=== PATIENT | female | born 1935 | race Caucasian/White ===

== ENCOUNTER 2020-04-02 20:58 | Inpatient (IN) | payer MEDICARE, OTHER ==
[~2020-04-02] VITALS: Ht 162.6 cm; Wt 60.7 kg
--- NOTE | 2020-04-02 21:10 | PHYS DOC ---
Past History Past Medical History: A-Fib, Dementia Past Surgical History: No Surgical History Smoking: Non-smoker Alcohol Use: None General Adult EDM: Chief Complaint: MECHANICAL FALL HPI: HPI: Patient is an 84 year old female who presents for evaluation via EMS after a fall at home. Patient apparently stood up and fell. She has a significant laceration to the top of her head. There was reported loss of consciousness briefly. Patient is not currently on a blood thinner but does have a history of atrial fibrillation. Furthermore patient is a somewhat poor historian due to a history of dementia. Furthermore she has a large skin tears and abrasions to her right hand. No other obvious areas of injury seen or reported. Patient is lucid and able to answer basic questions on arrival. There is no focal deficits or lateralizing signs. C-collar placed for safety in triage but patient has no current complaints of neck pain Review of Systems: Review of Systems: Constitutional: Denies fever or chills Eyes: Denies change in visual acuity HENT: Denies nasal congestion or sore throat Respiratory: Denies cough or shortness of breath Cardiovascular: Denies chest pain or edema GI: Denies abdominal pain, nausea, vomiting, bloody stools or diarrhea : Denies dysuria Musculoskeletal: Denies back pain or joint pain Integument: Denies rash Neurologic: Denies headache, focal weakness or sensory changes Endocrine: Denies polyuria or polydipsia Lymphatic: Denies swollen glands Psychiatric: Denies depression or anxiety Physical Exam: PE: Constitutional: Well developed, well nourished, mild to moderate acute distress. [] HENT: Normocephalic, traumatic with large central curvilinear laceration top of head extending into forehead, bilateral external ears normal, oropharynx moist, no oral exudates, nose normal. [] Eyes: PERRL, EOMI, conjunctiva normal, no discharge. [] Neck: Normal range of motion, no tenderness, supple, no stridor, no midline tenderness. [] Cardiovascular:Heart rate regular rhythm, no murmur [] Lungs & Thorax: Bilateral breath sounds clear to auscultation [] Abdomen: Bowel sounds normal, soft, no tenderness, no masses, no pulsatile masses. [] Skin: Warm, dry, no erythema, no rash. [] Back: No tenderness. [] Extremities: Mild to moderate tenderness right hand, multiple superficial skin tears present around the dorsal right hand and wrist, full range of motion to the affected hand. [] Neurologic: Alert and oriented, normal motor function, normal sensory function, no focal deficits noted. [] Psychologic: Affect abnormal, judgement abnormal, mood abnormal. [] Current Patient Data: Labs: Laboratory Tests Test 04/02/20 21:50 White Blood Count 11.2 x10^3/uL Red Blood Count 4.43 x10^6/uL Hemoglobin 13.0 g/dL Hematocrit 40.1 % Mean Corpuscular Volume 90 fL Mean Corpuscular Hemoglobin 29 pg Mean Corpuscular Hemoglobin Concent 32 g/dL Red Cell Distribution Width 13.3 % Platelet Count 318 x10^3/uL Neutrophils (%) (Auto) 77 % Lymphocytes (%) (Auto) 17 % Monocytes (%) (Auto) 5 % Eosinophils (%) (Auto) 0 % Basophils (%) (Auto) 1 % Neutrophils # (Auto) 8.7 x10^3uL Lymphocytes # (Auto) 1.9 x10^3/uL Monocytes # (Auto) 0.6 x10^3/uL Eosinophils # (Auto) 0.0 x10^3/uL Basophils # (Auto) 0.1 x10^3/uL Prothrombin Time SEC Prothromb Time International Ratio 0.9 Sodium Level 141 mmol/L Potassium Level 3.6 mmol/L Chloride Level 104 mmol/L Carbon Dioxide Level 28 mmol/L Anion Gap 9 Blood Urea Nitrogen 18 mg/dL Creatinine 1.2 mg/dL Estimated GFR (Cockcroft-Gault) 42.6 BUN/Creatinine Ratio 15 Glucose Level 136 mg/dL Calcium Level 9.3 mg/dL Total Bilirubin 0.2 mg/dL Aspartate Amino Transf (AST/SGOT) 7 U/L Alanine Aminotransferase (ALT/SGPT) 11 U/L Alkaline Phosphatase 105 U/L Troponin I Quantitative < 0.017 ng/mL MQ-Hww-R-Type Natriuretic Peptide 225 pg/mL Total Protein 7.4 g/dL Albumin 3.5 g/dL Albumin/Globulin Ratio 0.9 Current Medications Medications (Trade) Dose Ordered Sig/[place] Route PRN Reason Start Time Stop Time Status Last Admin Dose Admin Sodium Chloride 1,000 ml @ 100 mls/hr Q10H IV 04/02/20 21:12 04/03/20 07:11 Lidocaine HCl 20 ml 1X ONCE IJ 04/02/20 21:45 04/02/20 22:05 DC Fentanyl Citrate (Fentanyl 2ml Vial) 25 mcg 1X ONCE IVP 04/02/20 23:30 04/02/20 23:31 EKG: EKG: EKG shows normal sinus rhythm, rate 76, leftward axis, otherwise unremarkable EKG, not STEMI, not afib[] Radiology/Procedures: Radiology/Procedures: [][place] [address] IMAGING REPORT Signed PATIENT: DEISY BLACK AACCOUNT: [id number] : 1935 LOCATION: ER AGE: 84 SEX: F EXAM STATUS: REG ER ORD. PHYSICIAN: DEDRICK LIVINGSTON DO REASON: Right hand pain, fall, injury PROCEDURE: HAND RIGHT 3V Examination: 3 views of the right hand HISTORY: History of right hand pain COMPARISON: None available. Findings: The alignment of the metacarpophalangeal joints, interphalangeal grossly appears unremarkable. Moderate joint space loss identified in the PIP, DIP joints and the first metacarpal joint likely degenerative changes IMPRESSION: 1. No acute osseous findings. 2. Moderate degenerative changes identified in the first carpometacarpal joint and the metacarpophalangeal, interphalangeal joints. Electronically signed by: Cj Sood MD (04/02/2020 10:58 PM) [id number] DICTATED AND SIGNED BY: CJ SOOD MD DATE: 04/02/20 2258 CC: ZANDRA LÓPEZ MD; DEDRICK LIVINGSTON DO ~ Impressions: [address] [address] IMAGING REPORT Signed PATIENT: DEISY BLACK AACCOUNT: [id number] : 1935 LOCATION: ER AGE: 84 SEX: F EXAM STATUS: REG ER ORD. PHYSICIAN: DEDRICK LIVINGSTON DO REASON: short of air, fall PROCEDURE: PORTABLE CHEST 1V EXAM: CHEST 1 VIEW History: Shortness of breath, fall COMPARISON: None available. TECHNIQUE: Single portable radiograph of the chest FINDINGS: The cardiac silhouette is unremarkable. The lungs are clear bilaterally. The costophrenic sulci are clear and well demarcated. IMPRESSION: No radiographic evidence of an acute cardiopulmonary process. Electronically signed by: Cj Sood MD (04/02/2020 10:43 PM) [id number] DICTATED AND SIGNED BY: CJ SOOD MD DATE: 04/02/202242 CC: ZANDRA LÓPEZ MD; DEDRICK LIVINGSTON DO ~ [address] [address] IMAGING REPORT Signed PATIENT: DEISY BLACK AACCOUNT: [id number] : 1935 LOCATION: ER AGE: 84 SEX: F EXAM STATUS: REG ER ORD. PHYSICIAN: DEDRICK LIVINGSTON DO REASON: head injury, LOC, laceration PROCEDURE: CT HEAD AND CERVICAL SPINE WO Examination: CT head and cervical spine without contrast CT HEAD INDICATION: Reason: head injury, LOC, laceration / Spl. Instructions: / History: COMPARISON: None Available. Exposure: One or more of the following individualized dose reduction techniques were utilized for this examination: 1. Automated exposure control 2. Adjustment of the mA and/or kV according to patient size 3. Use of iterative reconstruction technique TECHNIQUE: 5 mm contiguous axial images were obtained from the skull base to the vertex in both bone and soft tissue algorithm. FINDINGS: Mild bilateral periventricular white matter hypodensities likely chronic small vessel ischemic disease. Small laceration left frontal scalp region. No evidence of acute intracranial hemorrhage. No extra-axial fluid collections. No mass effect or midline shift. Ventricular size is appropriate. Basal cisterns are patent. No fractures identified.Madden-white differentiation is preserved.Globes and orbits are within normal limits. Paranasal sinuses and mastoid air cells are clear. IMPRESSION: No acute intracranial findings. CT CERVICAL SPINE INDICATION: Reason: head injury, LOC, laceration / Spl. Instructions: / History: COMPARISON: None Available. Technique: 2.5 mm contiguous axial images were obtained from the skull base through the cervicothoracic junction in both bone and soft tissue algorithm. Additional sagittal and coronal reconstructions were also performed. FINDINGS: Vertebral body height and alignment are maintained. Cervical lordosis is preserved. The lateral masses of C1 are aligned upon C2. No fractures identified. The bony canal is patent throughout. Moderate intervertebral disc height loss identified in cervical spine most at C5-C6, C6-C7 vertebral levels. The paraspinous soft tissues are unremarkable. Visualized intracranial contents are unremarkable. Lung apices are clear. IMPRESSION: 1. No acute fracture of the cervical spine. Correlate clinically. 2. Moderate degenerative changes cervical spine at C5-C6, C6-C7 vertebral levels. Electronically signed by: Cj Sood MD (04/02/2020 10:20 PM) [id number] DICTATED AND SIGNED BY: CJ SOOD MD DATE: 04/02/202219 CC: ZANDRA LÓPEZ MD; DEDRICK LIVINGSTON DO ~ Heart Score: HEART Score for Chest Pain: HEART Score for Chest Pain Response (Comments) Value History Moderately Suspicious 1 ECG Normal 0 Age > 65 2 Risk Factors 1 or 2 Risk Factors 1 Troponin < Normal Limit 0 Total 4 Risk Factors: Risk Factors: DM, Current or recent (<one month) smoker, HTN, HLP, family history of CAD, obesity. Risk Scores: Score 0 - 3: 2.5% MACE over next 6 weeks - Discharge Home Score 4 - 6: 20.3% MACE over next 6 weeks - Admit for Clinical Observation Score 7 - 10: 72.7% MACE over next 6 weeks - Early Invasive Strategies Course & Med Decision Making: Course & Med Decision Making Pertinent Labs and Imaging studies reviewed. (See chart for details) [] Dragon Disclaimer: Dragon Disclaimer: This electronic medical record was generated, in whole or in part, using a voice recognition dictation system. 2315 Case was discussed with Dr. López patient admitted to telemetry bed. Wound closed and dressed on her head. The skin tears on her right hand were dressed with nonstick dressing. There is no fracture present at that site and there is no indication for sutures of that right hand. Since there was loss of consciousness and a head injury as well as a possible syncopal episode patient admitted to the hospital to a telemetry bed. Differential diagnosis included skull fracture, brain bleed, cardiac event. We are working on getting a urine on this patient as it may have contributed to her weakness. Patient has no focal deficits or lateralizing signs. C-spine cleared after CT results were known and are negative for fracture Departure Departure: Impression: Primary Impression: Syncope Qualified Codes: R55 - Syncope and collapse Additional Impressions: Head injury Qualified Codes: S09.90XA - Unspecified injury of head, initial encounter Scalp laceration Qualified Codes: S01.01XA - Laceration without foreign body of scalp, initial encounter General weakness Skin tear of right hand without complication Qualified Codes: S61.411A - Laceration without foreign body of right hand, initial encounter Disposition: 09 ADMITTED INPT THIS HOSP Admitting Physician: Zandra López Condition: STABLE Referrals: ZANDRA LÓPEZ MD (PCP) Laceration/Wound Repair Laceration/Wound Repair : Wound Location: head Wound's Depth, Shape: into muscle, irregular, contused tissue Wound Length (cm): 10 Wound Explored: clean Irrigated w/ Saline (ccs): 200 Anesthesia: 1% Lidocaine Volume Anesthetic (ccs): 10 Wound Debrided: minimal Wound Repaired With: sutures Suture Size/Type: 3:0 Number of Sutures: 2 Sterile Dressing Applied?: Yes Splint Applied?: No Sling Applied?: No Progress In addition to number four 3-0 nylon sutures placed to approximate the wound and additional 12 ashley added this showed good wound approximation. Good hemostasis at the conclusion of the procedure DEDRICK LIVINGSTON DO Apr 02, 2020 21:10
[2020-04-02] MEDS ORDERED: IV NORMAL SALINE 1,000ML 1,000 ML IV SCH (21:12)
[2020-04-02] MEDS ORDERED: LIDOCAINE 2% 20 ML VIAL. IJ ONE (21:45)
--- NOTE | 2020-04-02 22:18 | EKG ---
[address] [address] Test Date: 2020-04-02 Test Time: 21:29:01 Pat Name: DEISY BLACK Department: Room: Gender: F [employer] Operator: NAS : 1935 Requested By: DEDRICK LIVINGSTON Order Number: [id number] Reading MD: Measurements Intervals [place] Rate: 76 P: 51 CO: 150 QRS: -6 QRSD: 74 T: 49 QT: 370 QTc: 420 Interpretive Statements SINUS RHYTHM ATRIAL PREMATURE COMPLEX(ES) LEFTWARD AXIS OTHERWISE NORMAL ECG RI6.02 No previous ECG available for comparison
[2020-04-02 22:19] LABS: BASO # 0.1 x10^3/uL (0.0-0.2); BASO % 1 % (0-3); EOS % 0 % (0-3); HEMATOCRIT 40.1 % (36.0-47.0); LYMPH # 1.9 x10^3/uL (1.0-4.8); LYMPH % 17 % (24-48); MEAN CORPUSCULAR HEMOGLOBIN 29 pg (25-35); MEAN CORPUSCULAR HGB CONC 32 g/dL (31-37); MEAN CORPUSCULAR VOLUME 90 fL (79-100); MONO # 0.6 x10^3/uL (0.0-1.1); MONO % 5 % (0-9); NEUT # 8.7 x10^3uL (1.8-7.7); NEUT % 77 % (31-73); PLATELET COUNT 318 x10^3/uL (140-400); RED BLOOD COUNT 4.43 x10^6/uL (3.50-5.40); RED CELL DISTRIBUTION WIDTH 13.3 % (11.5-14.5); WHITE BLOOD COUNT 11.2 x10^3/uL (4.0-11.0)
--- NOTE | 2020-04-02 22:23 | RAD ---
Examination: CT head and cervical spine without contrast CT HEAD INDICATION: Reason: head injury, LOC, laceration / Spl. Instructions: / History: COMPARISON: None Available. Exposure: One or more of the following individualized dose reduction techniques were utilized for this examination: 1. Automated exposure control 2. Adjustment of the mA and/or kV according to patient size 3. Use of iterative reconstruction technique TECHNIQUE: 5 mm contiguous axial images were obtained from the skull base to the vertex in both bone and soft tissue algorithm. FINDINGS: Mild bilateral periventricular white matter hypodensities likely chronic small vessel ischemic disease. Small laceration left frontal scalp region. No evidence of acute intracranial hemorrhage. No extra-axial fluid collections. No mass effect or midline shift. Ventricular size is appropriate. Basal cisterns are patent. No fractures identified.Madden-white differentiation is preserved.Globes and orbits are within normal limits. Paranasal sinuses and mastoid air cells are clear. IMPRESSION: No acute intracranial findings. CT CERVICAL SPINE INDICATION: Reason: head injury, LOC, laceration / Spl. Instructions: / History: COMPARISON: None Available. Technique: 2.5 mm contiguous axial images were obtained from the skull base through the cervicothoracic junction in both bone and soft tissue algorithm. Additional sagittal and coronal reconstructions were also performed. FINDINGS: Vertebral body height and alignment are maintained. Cervical lordosis is preserved. The lateral masses of C1 are aligned upon C2. No fractures identified. The bony canal is patent throughout. Moderate intervertebral disc height loss identified in cervical spine most at C5-C6, C6-C7 vertebral levels. The paraspinous soft tissues are unremarkable. Visualized intracranial contents are unremarkable. Lung apices are clear. IMPRESSION: 1. No acute fracture of the cervical spine. Correlate clinically. 2. Moderate degenerative changes cervical spine at C5-C6, C6-C7 vertebral levels. Electronically signed by: Cj Sood MD (04/02/2020 10:20 PM) [id number]
[2020-04-02 22:46] LABS: CALCIUM 9.3 mg/dL (8.5-10.1); CREATININE 1.2 mg/dL (0.6-1.0); GFR 42.6; POTASSIUM 3.6 mmol/L (3.5-5.1)
--- NOTE | 2020-04-02 22:46 | RAD ---
EXAM: CHEST 1 VIEW History: Shortness of breath, fall COMPARISON: None available. TECHNIQUE: Single portable radiograph of the chest FINDINGS: The cardiac silhouette is unremarkable. The lungs are clear bilaterally. The costophrenic sulci are clear and well demarcated. IMPRESSION: No radiographic evidence of an acute cardiopulmonary process. Electronically signed by: Cj Sood MD (04/02/2020 10:43 PM) [id number]
[2020-04-02 22:58] LABS: ALBUMIN 3.5 g/dL (3.4-5.0); ALBUMIN/GLOBULIN RATIO 0.9 (1.0-1.7); TOTAL BILIRUBIN 0.2 mg/dL (0.2-1.0); TOTAL PROTEIN 7.4 g/dL (6.4-8.2)
--- NOTE | 2020-04-02 23:01 | RAD ---
Examination: 3 views of the right hand HISTORY: History of right hand pain COMPARISON: None available. Findings: The alignment of the metacarpophalangeal joints, interphalangeal grossly appears unremarkable. Moderate joint space loss identified in the PIP, DIP joints and the first metacarpal joint likely degenerative changes IMPRESSION: 1. No acute osseous findings. 2. Moderate degenerative changes identified in the first carpometacarpal joint and the metacarpophalangeal, interphalangeal joints. Electronically signed by: Cj Sood MD (04/02/2020 10:58 PM) [id number]
[2020-04-02] MEDS ORDERED: IV NORMAL SALINE 50ML 50 ML ONE (23:28)
[2020-04-02] MEDS ORDERED: ceFAZolin SODIUM 1 GM VIAL ONE (23:28)
[2020-04-02] MEDS ORDERED: TETANUS AND DIPHTHERIA TOX/PF 0.5 ML VIAL. VAX IM ONE (23:30)
[2020-04-02] MEDS ORDERED: ONDANSETRON PF 4 MG/2 ML VIAL. IVP PRN (23:30)
[2020-04-03] VITALS (8 sets, daily range): BP systolic 116–160; BP diastolic 41–86
[2020-04-03] MEDS ORDERED: DIPH,PERTUSS(ACELL),TET VAC/PF 0.5 ML SYRINGE. VAX IM ONE (00:30)
[2020-04-03 01:40] LABS: BILIRUBIN,URINE NEG (NEG); CLARITY,URINE HAZY; COLOR,URINE YELLOW; GLUCOSE,URINE NEG (NEG); NITRITE,URINE NEG (NEG); UROBILINOGEN,URINE 0.2 mg/dL (0.2 mg/dL)
[2020-04-03 01:41] LABS: BACTERIA,URINE MOD /HPF (0-FEW); RBC,URINE RARE /HPF (0-2); SQUAMOUS EPITHELIAL CELL,UR FEW /LPF
[2020-04-03] MEDS ORDERED: FLU VACC QS 2020-21(6MOS+)/PF 0.5 ML SYRINGE. VAX IM ONE (09:00)
[2020-04-03] MEDS ORDERED: ACETAMINOPHEN 325 MG TABLET PO PRN (09:30)
[2020-04-04 06:10] VITALS: BP 135/58
[2020-04-04 07:39] VITALS: BP 154/64
[2020-04-04] MEDS ORDERED: FLU VACC QS 2020-21(6MOS+)/PF 0.5 ML SYRINGE. VAX IM ONE (09:00)
[2020-04-04] MEDS ORDERED: ACET325T9 PO (10:30)
--- NOTE | 2020-04-04 10:32 | DISCH ---
HOME HEALTH DISCHARGE/MEDS DISCHARGE INFORMATION: Discharge Date: Apr 04, 2020 Final Diagnosis: Problems Medical Problems: (1) General weakness Status: Acute (2) Head injury Status: Acute (3) Scalp laceration Status: Acute (4) Skin tear of right hand without complication Status: Acute (5) Syncope Status: Acute Condition on Discharge: Stable CODE STATUS: Code Status: Full HOME HEALTH: Face to Face: I certify this patient is under my care and that I, or a nurse practitioner or physician's therapist's assistant working with me, had a face to face encounter that meets the physician face to face encounter requirements with this patient on 04/04/2020. Medical Condition(s): Dementia, Falls Fci For: Assess Cardiopulm Status, Assess & Educate Safety, Assess/Skilled Observatio, Medication Management, Wound Care, Other: Physical Therapy For: Evalulation/Treatment Occupational Therapy For: Evaluation/Treatment Speech Language Pathology For: Evaluation/Treatment Homebound Status Met By: Poor coordination w/ amb., Unsteady balance w/ amb,, Frequent falls w/ injury, Poor cognition POST DISCHARGE ORDERS: Activity Instructions for Disc: No restrictions Weight Bearing Status after Di: No restrictions DIET AFTER DISCHARGE: Regular CERTIFICATION STATEMENT: Certification Statement: Based on the above finding, I certify that this patient is confined to the home and needs intermittent retirement care, physical therapy and/or speech therapy, or continues to need occupational therapy.~ This patient is under my care, and I have initiated the establishment of the plan of care.~ This patient will be followed by myself or a community physician who will periodically review the plan of care. DISCHARGE MEDICATIONS: Home Meds Reported Medications Info (NO KNOWN MEDICATIONS PRIOR TO ADMISSTION) Each, 1 EACH 1X for No home meds 04/03/20 ZANDRA LÓPEZ MD Apr 04, 2020 10:32
--- NOTE | 2020-04-04 11:44 | HP ---
ADMIT DATE: 04/02/2020 HISTORY OF PRESENT ILLNESS: An 84-year-old female came in through the Emergency Room, apparently had fallen at home, had a sharp laceration to her head. She reported some loss of consciousness, but no seizure activity. She denies chest pain, shortness of breath, not on any blood thinner. The patient does have a history of atrial fibrillation, it is a very high likability of falling. The patient also has severe dementia. She was admitted for further evaluation of her concussion and make further evaluation on the situation as a whole with her falling and the like. PAST MEDICAL HISTORY: Includes hard of hearing, dementia, paroxysmal atrial fib, cholecystectomy, hysterectomy, UTIs, joint replacement. FAMILY HISTORY: Noncontributory. ALLERGIES: No known drug allergies. SOCIAL HISTORY: The patient denies smoking, alcohol or drug use. REVIEW OF SYSTEMS: Alert, but outside of the loss of consciousness. She is not a good historian. Denies chest pain, shortness of breath, abdominal pain. Denies any melena, hematochezia, hematemesis and neurologically intact. PHYSICAL EXAMINATION: GENERAL: The patient on exam is a pleasant white female, in no apparent distress. VITAL SIGNS: Blood pressure ____, respiratory rate 10, pulse 60, afebrile. HEENT: The patient's head was atraumatic, normocephalic. Eyes: PERRLA without jaundice. The mouth and throat were normal. NECK: Supple, without thyromegaly. LUNGS: Diminished throughout, poor movement of air. CARDIOVASCULAR: Irregularly irregular. ABDOMEN: Soft, nontender. EXTREMITIES: No clubbing, cyanosis or edema. NEUROLOGIC: Intact except for her dementia. She does have ashley in the central part of her forehead going back into the scalp, where she had fallen and lacerated the scalp. LABORATORY DATA: The patient's white count 11.2, hemoglobin 13. Sodium and potassium 141 and 3.6, BUN and creatinine 18 and 1.2. Urine, ____ white blood cells. Culture pending. CT of the head and spine shows no acute problems intracranially and ____ shows some moderate intervertebral disk loss as well as cervical spine as well as degenerative arthritis. Chest x-ray was basically unremarkable and the patient also had a hand x-ray where she had fallen just showed some degenerative changes, but no signs of a fracture. IMPRESSION: Syncopal spell fall at home, loss of consciousness, concussion, dementia, hard of hearing, chronic kidney disease stage 3, leukorrhea. PLAN: Continue to monitor the patient accordingly to PT, OT establish for her ability to be safe and be able to mobilize without falling and make further evaluation at that time. ZANDRA LÓPEZ MD DR: GARLAND/dada JOB#: [id number] / [id number]
== END 2020-04-04 11:15 | disposition home health service (06) | DRG 41 ==
LOC: ER 20:58 → ICU 23:16
PROVIDERS: ADMIT Family Medicine; ATTEND Family Medicine
PROC: 0JQ00ZZ Repair Scalp Subcutaneous Tissue and Fascia, Open Approach (ICD-10-PCS; principal; 2020-04-02)
DX: G90.8 Other disorders of autonomic nervous system (principal); S06.0X9A Concussion with loss of consciousness of unspecified duration, initial encounter; S01.01XA Laceration without foreign body of scalp, initial encounter; F03.90 Unspecified dementia, unspecified severity, without behavioral disturbance, psychotic disturbance, mood disturbance, and anxiety; H91.90 Unspecified hearing loss, unspecified ear; I48.0 Paroxysmal atrial fibrillation; N18.30 Chronic kidney disease, stage 3 unspecified; N89.8 Other specified noninflammatory disorders of vagina; S60.511A Abrasion of right hand, initial encounter; S61.411A Laceration without foreign body of right hand, initial encounter; Y92.009 Unspecified place in unspecified non-institutional (private) residence as the place of occurrence of the external cause; Z90.710 Acquired absence of both cervix and uterus
CPT/HCPCS: 12004; 36415; 70450; 71045; 72125; 73130; 80053; 81001; 83880; 84484; 85025; 85610; 87086; 90471; 90715; 93005; 96365; 96375; J0690; J3010; 97530; 99285-25; J2001; J7030

== ENCOUNTER 2020-07-26 09:29 | Emergency (ER) | payer MEDICARE, OTHER ==
[~2020-07-26] VITALS: Ht 162.6 cm; Wt 60.7 kg
[~2020-07-26 09:29] MED LIST: ACET325T9 PO
--- NOTE | 2020-07-26 11:03 | RAD ---
EXAM: XR ELBOW_RIGHT, XR CHEST 2V, XR FOREARM_RIGHT 2 VIEWS INDICATION: Reason: fall / Spl. Instructions: / History: . TECHNIQUE: PA and lateral views COMPARISON: 04/02/2020 chest x-ray FINDINGS: The heart size is normal. The great vessels appear unremarkable. There is no hilar or mediastinal mass. The lungs are hyperinflated but otherwise clear. There is no pleural effusion or pneumothorax. There are no significant osseous abnormalities. IMPRESSION: No active cardiopulmonary disease. PROCEDURE: XR ELBOW_RIGHT STUDY DATE: 07/26/2020 CLINICAL INDICATION / HISTORY: fall, right elbow pain. TECHNIQUE: Right Elbow 2 views COMPARISON: None FINDINGS: Two views of the right elbow demonstrate no evidence of fracture, subluxation, or dislocati on. Soft tissues unremarkable. IMPRESSION: No acute osseous abnormality. PROCEDURE: XR FOREARM_RIGHT 2 VIEWS STUDY DATE: 07/26/2020 CLINICAL INDICATION / HISTORY: Reason: fall / Spl. Instructions: / History: . TECHNIQUE: Right forearm 2 views. AP and lateral views. COMPARISON: None FINDINGS: No fracture or dislocation is identified. The bone density appears normal.There is questio nable widening of the scapholunate interval on the AP view. The wrist and elbow joints are otherwis e approximated. No soft tissue abnormality is seen. IMPRESSION: Questionable widening of the scapholunate interval at the wrist. No fracture or malalignm ent shown. Correlate with clinical exam. In the absence of localizing symptoms, this most likely is a n artifact of positioning and no acute findings are otherwise noted. Electronically signed by: Yara Ramírez MD (07/26/2020 11:01 AM) [facility] [place]
--- NOTE | 2020-07-26 11:28 | PHYS DOC ---
Past History Past Medical History: A-Fib, Dementia Additional Past Medical Histor: BRADYCARDIA Past Surgical History: No Surgical History Smoking: Non-smoker Alcohol Use: None Adult General Chief Complaint Chief Complaint: MECHANICAL FALL [facility] HPI Patient is an 84-year-old pleasantly demented female who presents to the emergency room after having a fall. She states that she does not remember the fall, however family states that this is normal for her. They do not believe that she passed out. They state that she did not lose consciousness or hit her head. She is complaining of some right rib pain and right elbow pain. She is able to fully move the arm. She denies any other pain. Review of Systems Review of Systems Complete ROS is negative unless otherwise documented in HPI Allergies Allergies Allergies Coded Allergies Type Severity Reaction Last Updated Verified No Known Drug Allergies 07/26/20 No Physical Exam Physical Exam General: Awake, alert, NAD. Well Nourished, well hydrated. Cooperative HEENT: Atraumatic, EOMI, PERRL, airway patent, moist oral mucosa Neck: Supple, trachea midline Respiratory: CTA bilaterally, normal effort, no wheezing/crackles, minimal tenderness to the right ribs CV: RRR, no murmur, cap refill <2 GI: Soft, nondistended, nontender, no masses MSK: Right elbow: Small amount of swelling noted, normal range of motion, normal sensation, no obvious deformity. No tenderness to the right shoulder or right wrist. Full range of motion in the hand. Skin: Warm, dry, intact Neuro: A&O x3, speech NL, sensory and motor grossly intact, no focal deficits Psych: Normal affect, normal mood, not suicidal or homicidal Current Patient Data Vital Signs Vital Signs Date Time Temp Pulse Resp B/P (MAP) Pulse Ox O2 Delivery O2 Flow Rate FiO2 07/26/20 09:35 98.3 49 16 157/67 (97) 95 Room Air EKG EKG [] Radiology/Procedures Radiology/Procedures [] Heart Score Risk Factors: Risk Factors: DM, Current or recent (<one month) smoker, HTN, HLP, family history of CAD, obesity. Risk Scores: Risk Factors: DM, Current or recent (<one month) smoker, HTN, HLP, family history of CAD, obesity. Course & Med Decision Making Course & Med Decision Making Pertinent Labs and Imaging studies reviewed. (See chart for details) Patient is a 84-year-old female who presents to the emergency room after having a fall from standing. Patient has some right rib pain and elbow pain. She did not hit her head or lose consciousness. She has had multiple falls in the past and this is not unusual for her. X-rays were ordered and were unremarkable. Patient continues to move the arm fully and without difficulty. On reevaluation she is not complaining of any pain. Patient's test results and vitals while in the ED were fully reviewed and discussed with the patient. Patient is stable and at this time does not need admission to the hospital. We have discussed strict return precautions and the importance of following up with their Primary Care Physician. Patient stated understanding and was given an opportunity to ask any questions. Patient is in agreement with plan. Dragon Disclaimer Dragon Disclaimer This electronic medical record was generated, in whole or in part, using a voice recognition dictation system. Departure Departure: Impression: Primary Impression: Fall Additional Impression: Elbow contusion Disposition: 01 DC HOME SELF CARE/HOMELESS Condition: IMPROVED Referrals: ZANDRA LÓPEZ MD (PCP) Patient Instructions: Elbow Contusion Problem Qualifiers DELORES LOVE MD Jul 26, 2020 11:28
== END 2020-07-26 11:58 | disposition home or self-care (01) ==
LOC: ER 09:29
DX: S50.01XA Contusion of right elbow, initial encounter (principal); R07.81 Pleurodynia; F03.90 Unspecified dementia, unspecified severity, without behavioral disturbance, psychotic disturbance, mood disturbance, and anxiety; I48.91 Unspecified atrial fibrillation; W18.39XA Other fall on same level, initial encounter; Y93.89 Activity, other specified; Y92.89 Other specified places as the place of occurrence of the external cause; Y99.8 Other external cause status
CPT/HCPCS: 71046; 73070; 73090; 99284

== ENCOUNTER 2021-04-06 13:07 | Emergency (ER) | payer MEDICARE, OTHER ==
[~2021-04-06] VITALS: Ht 162.6 cm; Wt 60.7 kg
--- NOTE | 2021-04-06 13:55 | PHYS DOC ---
Past History Past Medical History: A-Fib, Dementia Additional Past Medical Histor: BRADYCARDIA Past Surgical History: Hip Replacement Smoking: Non-smoker Alcohol Use: None General Adult EDM: Chief Complaint: CHEST PAIN HPI: HPI: 85-year-old female presents with dementia and chest pain. The patient was at home with her niece who is a caregiver and started complaining about her chest hurting. It hurt bad enough that she asked her to call 911. She called 911 and when EMS arrived the patient did not have any pain. She has dementia and does not have good short-term memory. She did not think she needed to go to the hospital. When she arrived in the emergency room she had no specific com plaints. Her daughter accompanies her and provides most of the story. She does not currently have any pain. No reported fever or chills. Review of Systems: Review of Systems: Constitutional: Denies fever or chills Eyes: Denies change in visual acuity HENT: Denies nasal congestion or sore throat Respiratory: Denies cough or shortness of breath Cardiovascular: chest pain GI: Denies abdominal pain, nausea, vomiting, bloody stools or diarrhea : Denies dysuria Musculoskeletal: Denies back pain or joint pain Integument: Denies rash Neurologic: Denies headache, focal weakness or sensory changes Endocrine: Denies polyuria or polydipsia Lymphatic: Denies swollen glands Psychiatric: Denies depression or anxiety Allergies: Allergies: Allergies Coded Allergies Type Severity Reaction Last Updated Verified No Known Drug Allergies 07/26/20 No Physical Exam: PE: Constitutional: Well developed, well nourished, no acute distress, non-toxic ap pearance. [] HENT: Normocephalic, atraumatic, bilateral external ears normal, oropharynx moist, no oral exudates, nose normal. [] Eyes: PERRLA, EOMI, conjunctiva normal, no discharge. [] Neck: Normal range of motion, no tenderness, supple, no stridor. [] Cardiovascular: Heart rate 65, regular rhythm, no murmur [] Lungs & Thorax: Bilateral breath sounds clear to auscultation [] Abdomen: Bowel sounds normal, soft, no tenderness, no masses, no pulsatile masses. [] Skin: Warm, dry, no erythema, no rash. [] Back: No tenderness, no CVA tenderness. [] Extremities: No tenderness, no cyanosis, no clubbing, ROM intact, no edema. [] Neurologic: dementia. Alert and oriented to person and place, normal motor function, normal sensory function, no focal deficits noted. [] Psychologic: Affect normal, judgement normal, mood normal. [] Current Patient Data: Vital Signs: Vital Signs Date Time Temp Pulse Resp B/P (MAP) Pulse Ox O2 Delivery O2 Flow Rate FiO2 04/06/21 13:12 98.0 82 18 158/80 (106) Room Air EKG: EKG: [] Radiology/Procedures: Radiology/Procedures: [] Impressions: CT scan of the chest with contrast 04/06/2021 CLINICAL HISTORY: Nodular retrocardiac opacity seen on chest radiograph from earlier today. TECHNIQUE: After the intravenous administration of 75 cc of Omnipaque 300, contiguous, 3 mm axial sections were obtained through the chest and upper abdomen. One or more of the following individualized dose reduction techniques were utilized for this study: 1. Automated exposure control. 2. Adjustment of the mA and/or kV according to patient size. 3. Use of iterative reconstruction technique. FINDINGS: Comparison is made to the patient's portable chest radiograph dated 04/06/2021. The retrocardiac opacity seen on the patient's chest radiograph represents a small focal herniation of fat through the posterior medial left hemidiaphragm. Atherosclerotic calcification of the thoracic aorta and its branches is seen. The thoracic aorta is tortuous but tapers normally. The heart is mildly enlarged. No hilar, axillary or mediastinal lymphadenopathy is seen. Dependent subsegmental atelectasis is seen involving both lungs. No area of consolidation seen. No pneumothorax or pleural effusion is noted. Images through the upper abdomen demonstrate decreased attenuation of the liver parenchyma consistent with fatty infiltration. Atherosclerotic calcification of the abdominal aorta is seen. Minimal S-shaped curvature of the thoracolumbar spine is noted. Degenerative changes are seen involving the thoracic spine. IMPRESSION: The retrocardiac opacity seen on the patient's chest radiograph represents a small focal herniation of fat through the posterior medial left hemidiaphragm. No abnormal soft tissue mass is seen. Electronically signed by: Titi Marr MD (04/06/2021 3:45 PM) [id number] DICTATED AND SIGNED BY: TITI MARR MD DATE: 04/06/21 1533 CC: NAJMA TREVINO DO; ZANDRA LÓPEZ MD ~MTH0 0 Heart Score: C/O Chest Pain: Yes HEART Score for Chest Pain: HEART Score for Chest Pain Response (Comments) Value History Slighlty/Non-Suspicious 0 Age > 65 2 Risk Factors No Risk Factors 0 Troponin < Normal Limit 0 Total 2 Risk Factors: Risk Factors: DM, Current or recent (<one month) smoker, HTN, HLP, family history of CAD, obesity. Risk Scores: Score 0 - 3: 2.5% MACE over next 6 weeks - Discharge Home Score 4 - 6: 20.3% MACE over next 6 weeks - Admit for Clinical Observation Score 7 - 10: 72.7% MACE over next 6 weeks - Early Invasive Strategies Course & Med Decision Making: Course & Med Decision Making Pertinent Labs and Imaging studies reviewed. (See chart for details) The patient's EKG is unremarkable. Chest x-ray shows retrocardiac finding that is nonspecific. CT recommended. It has been ordered. Patient's labs are unremarkable. She does have a urinary tract infection. I will blood cultures and will treat her with a gram of Rocephin. The patient's CT of the chest revealed that the area of concern was just a small fat-containing hernia. I will discharge the patient on 5 days of Macrobid. She is stable for discharge at this time. [] Dragon Disclaimer: Dragon Disclaimer: This electronic medical record was generated, in whole or in part, using a voice recognition dictation system. Departure Departure: Impression: Primary Impression: UTI (urinary tract infection) Qualified Codes: N30.01 - Acute cystitis with hematuria Disposition: HOME / SELF CARE / HOMELESS Condition: STABLE Referrals: ZANDRA ÓLPEZ MD (PCP) Patient Instructions: Urinary Tract Infection, Qpsd-oi-Ppcc Scripts Nitrofurantoin Monohyd/M-Cryst (MACROBID 100 MG CAPSULE) 100 Mg Capsule 1 CAP PO BID for UTI for 5 Days, #10 CAP 0 Refills Prov: NAJMA TREVINO DO 04/06/21 NAJMA TREVINO DO Apr 06, 2021 13:55
--- NOTE | 2021-04-06 14:05 | RAD ---
EXAM: AP View of the chest DATE: 04/06/2021 1:45 PM INDICATION: Chest pain COMPARISON: 07/26/2020 FINDINGS: The heart is not enlarged. Aortic calcifications are seen. Mediastinal and hilar contours are stable. Nodular retrocardiac opacity in the left lung base can be further assessed by CT. No pleural effusion or pneumothorax. IMPRESSION: Nodular retrocardiac opacity in the left lung base can be further assessed by CT. Electronically signed by: Juan José Patel MD (04/06/2021 2:03 PM) [id number]
[2021-04-06 14:06] LABS: BASO % 1 % (0-3); EOS % 0 % (0-3); HEMATOCRIT 36.9 % (36.0-47.0); HEMOGLOBIN 12.1 g/dL (12.0-15.5); LYMPH % 27 % (24-48); MEAN CORPUSCULAR HEMOGLOBIN 30 pg (25-35); MEAN CORPUSCULAR HGB CONC 33 g/dL (31-37); MEAN CORPUSCULAR VOLUME 89 fL (79-100); MONO # 0.4 x10^3/uL (0.0-1.1); MONO % 5 % (0-9); NEUT # 4.9 x10^3uL (1.8-7.7); NEUT % 67 % (31-73); PLATELET COUNT 290 x10^3/uL (140-400); RED BLOOD COUNT 4.12 x10^6/uL (3.50-5.40); RED CELL DISTRIBUTION WIDTH 13.2 % (11.5-14.5); WHITE BLOOD COUNT 7.4 x10^3/uL (4.0-11.0)
[2021-04-06 14:07] LABS: BILIRUBIN,URINE NEG (NEG); CLARITY,URINE CLEAR; COLOR,URINE YELLOW; GLUCOSE,URINE NEG (NEG); NITRITE,URINE POS (NEG)
[2021-04-06 14:08] LABS: BACTERIA,URINE MANY /HPF (0-FEW); RBC,URINE 0 /HPF (0-2); SQUAMOUS EPITHELIAL CELL,UR FEW /LPF
[2021-04-06 14:16] LABS: HEMOGLOBIN ISTAT 12.6 gm/dL; POTASSIUM ISTAT 3.7 mmol/L (3.5-5.0)
[2021-04-06 14:30] VITALS: BP 131/66
[2021-04-06] MEDS ORDERED: IOHEXOL 300 MG/ML 75 ML VIAL. IV ONE (14:45)
[2021-04-06] MEDS ORDERED: cefTRIAXone SODIUM 1 GM VIAL ONE (14:49)
[2021-04-06] MEDS ORDERED: IV NORMAL SALINE 50ML 50 ML ONE (14:49)
[2021-04-06 15:24] LABS: ALBUMIN 3.3 g/dL (3.4-5.0); TOTAL BILIRUBIN 0.2 mg/dL (0.2-1.0)
--- NOTE | 2021-04-06 15:48 | RAD ---
CT scan of the chest with contrast 04/06/2021 CLINICAL HISTORY: Nodular retrocardiac opacity seen on chest radiograph from earlier today. TECHNIQUE: After the intravenous administration of 75 cc of Omnipaque 300, contiguous, 3 mm axial sec tions were obtained through the chest and upper abdomen. One or more of the following individualized dose reduction techniques were utilized for this study: 1. Automated exposure control. 2. Adjustment of the mA and/or kV according to patient size. 3. Use of iterative reconstruction technique. FINDINGS: Comparison is made to the patient's portable chest radiograph dated 04/06/2021. The retrocardiac opacity seen on the patient's chest radiograph represents a small focal herniation of fat through the posterior medial left hemidiaphragm. Atherosclerotic calcification of the thoracic aorta and its branches is seen. The thoracic aorta is t ortuous but tapers normally. The heart is mildly enlarged. No hilar, axillary or mediastinal lymphade nopathy is seen. Dependent subsegmental atelectasis is seen involving both lungs. No area of consolidation seen. No pn eumothorax or pleural effusion is noted. Images through the upper abdomen demonstrate decreased attenuation of the liver parenchyma consistent with fatty infiltration. Atherosclerotic calcification of the abdominal aorta is seen. Minimal S-shaped curvature of the thoracolumbar spine is noted. Degenerative changes are seen involvi ng the thoracic spine. IMPRESSION: The retrocardiac opacity seen on the patient's chest radiograph represents a small focal herniation of fat through the posterior medial left hemidiaphragm. No abnormal soft tissue mass is se en. Electronically signed by: Titi Davis MD (04/06/2021 3:45 PM) [id number]
[2021-04-06 15:58] LABS: DIRECT BILIRUBIN 0.1 mg/dL (0.0-0.2)
[2021-04-06] MEDS ORDERED: NITR100C62 PO (16:02)
--- NOTE | 2021-04-06 20:25 | EKG ---
[address] [address] Test Date: 2021-04-06 Test Time: 13:39:51 Pat Name: DEISY BLACK Department: Room: Gender: F Sap Trainer: ADELSO : 1935 Requested By: NAJMA TREVINO Order Number: [id number] Reading MD: Linden Fontenot MD Measurements Intervals [place]ger Rate: 65 P: 90 RI: 156 QRS: -5 QRSD: 70 T: 56 QT: 388 QTc: 404 Interpretive Statements SINUS RHYTHM PAC Electronically Signed On 04-07-2021 9:21:28 COMPENSATION SUPERVISOR by Linden Fontenot MD
== END 2021-04-06 16:23 | disposition home or self-care (01) ==
LOC: ER 13:07
DX: N30.01 Acute cystitis with hematuria (principal); F03.90 Unspecified dementia, unspecified severity, without behavioral disturbance, psychotic disturbance, mood disturbance, and anxiety; I48.91 Unspecified atrial fibrillation
CPT/HCPCS: 36415; 71045; 71260; 80047; 80076; 81001; 84484; 85025; 87040; 87086; 93005; 96365; 99285; J0696; 87077; 87205

== ENCOUNTER 2021-06-19 16:24 | Inpatient (IN) | payer MEDICARE, OTHER ==
[~2021-06-19] VITALS: Ht 154.9 cm; Wt 58.9 kg
[~2021-06-19 16:24] MED LIST changes: +NITR100C62 PO
--- NOTE | 2021-06-19 17:00 | PHYS DOC ---
Past History Past Medical History: Dementia, Hip Fracture, UTI Additional Past Medical Histor: BRADYCARDIA Past Medical History Limited secondary to dementia Daughter Yamilex accompanied patient to ER today. Yamilex reports that patient had a UTI with dark mora brown, foul smelling urine 1-2 months ago but cannot remember exactly. She reports patient had full course of unknown antibiotics, resolved infection. Past Surgical History: Hip Replacement, Hysterectomy Past Surgical History Knee surgery unknown knee unknown year reported by patient's daughter Yamilex Limited secondary to dementia Smoking: Non-smoker Alcohol Use: None Drug Use: None Social History Limited secondary to dementia Patient lives with her daughter named Yamilex, Yamilex's , patient's grandaughter, and great grandchildren. General Adult EDM: Chief Complaint: DEHYDRATION HPI: HPI: Marilyn Linares (Ann) is a pleasant 85yo Fe presenting to [facility] ED with altered mental status secondary to dementia. Patient presents with primary practice clinician, for dehydration. Patient's daughter called Dr. López, her local family doctor at [address] López encouraged patient to go to [place] ED for fluids. Patient initially refused to come to ED. Patient has had no ticeable mental status decline over the last 2 weeks. She cannot remember names and cannot communicate her needs adequately. Patient refuses to wear hearing aids. Patient has not had adequate meal in 1 week. Patient's daughter reports patient just pushes food around on plate. There is no change in taste of food patient or noticeable reason for decreased appetite, patient just refuses to eat. Patient has not had any fluids in last 3 days. Patient is not in any pain today. Patient's daughter reports mild increased fatigue in patient. Patient has not had any vaccinations that patient's practice clinician knows about. Patient has not received her COVID-19 vaccinations as she refuses to leave house. Patient's daughter reports patient had a UTI 1-2 months ago with a full course of unknown antibiotics administered. History of present illness limited secondary to dementia. Review of Systems: Review of Systems: Constitutional: Denies fever or chills Eyes: Denies redness or eye pain HENT: Denies nasal congestion or rhinorrhea. Respiratory: Denies cough or shortness of breath Cardiovascular: Denies chest pain or palpitations GI: Denies abdominal pain or vomiting : Denies dysuria or hematuria Musculoskeletal: Reports or joint pain Integument: Denies rash or skin lesions Neurologic: Denies headache, focal weakness or sensory changes Review of systems limited secondary to dementia Current Medications: Current Meds: Patient occasionally takes greater than 65-year-old multivitamin Patient does not take any [id number] medication Patient does not take any prescription medication History limited secondary to dementia Allergies: Allergies: Allergies Coded Allergies Type Severity Reaction Last Updated Verified No Known Drug Allergies 06/19/21 No Physical Exam: PE: Constitutional: Well developed, well nourished, no acute distress, non-toxic appearance HENT: Normocephalic, atraumatic, dry oral mucous membranes, eyes Eyes: PERRL, EOMI, conjunctiva normal, no discharge Neck: Normal range of motion, no tenderness, supple Lungs & Thorax: No respiratory distress, equal chest rise and fall, clear to auscultation bilaterally Cardiovascular: Bradycardia, no murmurs, capillary refill 2 to 3 seconds upper and lower extremities bilaterally, Abdomen: Soft, no tenderness, tympanic in all 4 quadrants, hyperactive bowel sounds in all 4 quadrants Skin: Warm, dry, no erythema, no rash, mild forehead skin tenting, crepe like skin Back: No tenderness, no CVA tenderness Extremities: No tenderness, no edema Neurologic: Alert and oriented X 2, normal motor function, normal sensory function, no focal deficits noted Psychologic: Affect pleasant, judgment abnormal Current Patient Data: Labs: Laboratory Tests Test 06/19/21 17:19 06/19/21 18:27 06/19/21 18:45 06/19/21 18:58 White Blood Count 3.9 x10^3/uL Red Blood Count 4.19 x10^6/uL Hemoglobin 12.1 g/dL Hematocrit 36.9 % Mean Corpuscular Volume 88 fL Mean Corpuscular Hemoglobin 29 pg Mean Corpuscular Hemoglobin Concent 33 g/dL Red Cell Distribution Width 13.0 % Platelet Count 217 x10^3/uL Neutrophils (%) (Auto) 59 % Lymphocytes (%) (Auto) 28 % Monocytes (%) (Auto) 12 % Eosinophils (%) (Auto) 0 % Basophils (%) (Auto) 0 % Neutrophils # (Auto) 2.3 x10^3uL Lymphocytes # (Auto) 1.1 x10^3/uL Monocytes # (Auto) 0.5 x10^3/uL Eosinophils # (Auto) 0.0 x10^3/uL Basophils # (Auto) 0.0 x10^3/uL Sodium Level 139 mmol/L Potassium Level 3.8 mmol/L Chloride Level 103 mmol/L Carbon Dioxide Level 25 mmol/L Anion Gap 11 Blood Urea Nitrogen 15 mg/dL Creatinine 0.8 mg/dL Estimated GFR (Cockcroft-Gault) 67.8 BUN/Creatinine Ratio 19 Glucose Level 126 mg/dL Calcium Level 8.4 mg/dL Magnesium Level 2.4 mg/dL Total Bilirubin 0.4 mg/dL Aspartate Amino Transf (AST/SGOT) 20 U/L Alanine Aminotransferase (ALT/SGPT) 19 U/L Alkaline Phosphatase 66 U/L Creatine Kinase 33 U/L Creatine Kinase MB (Mass) 0.5 ng/mL Creatine Kinase MB Relative Index 1.5 % Troponin I High Sensitivity 7 ng/L Total Protein 6.2 g/dL Albumin 2.8 g/dL Albumin/Globulin Ratio 0.8 Urine Collection Type Clean catch Urine Color Yellow Urine Clarity Hazy Urine pH 6.0 Urine Specific Hull 1.025 Urine Protein Trace Urine Glucose (UA) Neg mg/dL Urine Ketones (Stick) 80 mg/dL Urine Blood Trace Urine Nitrite Neg Urine Bilirubin Small Urine Urobilinogen Dipstick 1.0 mg/dL Urine Leukocyte Esterase Mod Urine RBC 3-5 /HPF Urine WBC >40 /HPF Urine Squamous Epithelial Cells Mod /LPF Urine Bacteria Mod /HPF Influenza Type A (Rapid) Negative Influenza Type B (Rapid) Negative SARS-CoV-2 Antigen (Rapid) Positive Lactic Acid Level 1.0 mmol/L Current Medications Medications (Trade) Dose Ordered Sig/[place] Route PRN Reason Start Time Stop Time Status Last Admin Dose Admin Sodium Chloride 1,000 ml @ 1,000 mls/hr 1X ONCE IV 06/19/21 17:15 06/19/21 18:14 DC 06/19/21 17:25 Ceftriaxone Sodium 1 gm/ Sodium Chloride 50 ml @ 100 mls/hr 1X ONCE IV 06/19/21 18:45 06/19/21 19:14 DC 06/19/21 18:45 Azithromycin 500 mg/Sodium Chloride 250 ml @ 250 mls/hr 1X ONCE IV 06/19/21 18:45 06/19/21 19:44 DC Sodium Chloride 50 ml @ As Directed STK-MED ONCE .ROUTE 06/19/21 19:22 06/19/21 19:23 DC Ceftriaxone Sodium (Rocephin) 1 gm STK-MED ONCE .ROUTE 06/19/21 19:23 06/19/21 19:23 DC Vital Signs: Vital Signs Date Time Temp Pulse Resp B/P (MAP) Pulse Ox O2 Delivery O2 Flow Rate FiO2 06/19/21 16:31 97.9 80 18 149/55 (86) 94 EKG: EKG: At 17:19 normal sinus rhythm versus A. fib. at 70bpm. No noticeable ST elevations or depressions, baseline artifact noted throughout, QRS 74 ms, QT/QTc 388/422 ms Radiology/Procedures: Radiology/Procedures: PROCEDURE: CHEST AP ONLY EXAMINATION: Chest radiograph. VIEWS: 1 COMPARISON: CT chest dated 04/06/2021 INDICATION:85 years, Female, weakness. FINDINGS: Normal cardiomediastinal silhouette. Left worst than right, perihilar and basilar pulmonary infiltrates. Minimal atelectatic changes versus scarring in the right lung base. No pleural effusion or pneumothorax. No acute osseous process. IMPRESSION: Left worst than right, perihilar and basilar pulmonary infiltrates. Electronically signed by: Gerald Head MD (06/19/2021 6:14 PM) [facility] Heart Score: C/O Chest Pain: N/A Course & Med Decision Making: Course & Med Decision Making Pertinent Labs and Imaging studies reviewed. (See chart for details) 85 yo Fe Marilyn Linares presents to [facility] ED for possible dehydration and refusal to eat. PE findings indicate dehydration and poor nutrition. Patient Urinary Analysis reveals WBC and moderate nitrites. With past medical hx of recurrent UTI, and present lab results, it is concerning that patient has another UTI. Will require culture of urine for antibiotic resistance organisms. Treatment for UTI was initiated with IV Rocephin while UA culture is pending. IV fluids were initiated for dehydration. CXR was ordered for patient because of decreased Sa02 at 94% and declining Sa02 periodically. CXR shows b/l diffuse ground glass opacities and infiltrates. Patient has not received any vaccination doses against COVID-19. There are no sick contacts in household, per daughter that she lives with. Azithromycin IV and Ceftriaxone IV is initiated for superimposed bacterial infection related to suspected COVID-19 pneumonia based on CXR findings and positive rapid COVID-19 test results. Patient is requiring admission for further evaluation and treatment. Discussed with Dr. López (PCP) who is in agreement with admission. Discussed findings and plan with family, who acknowledge understanding and agreement. COVID-19 CRITERIA: The patient was evaluated during the global COVID-19 pandemic, and that diagnosis was suspected/considered upon their initial presentation. Their evaluation, treatment and testing was consistent with current guidelines for patients who present with complaints or symptoms that may be related to COVID-19. Dragon Disclaimer: Dragon Disclaimer: This electronic medical record was generated, in whole or in part, using a voice recognition dictation system. Departure Departure: Impression: Primary Impression: Pneumonia due to COVID-19 virus Additional Impressions: Hypoxia UTI (urinary tract infection) Qualified Codes: N30.01 - Acute cystitis with hematuria History of dementia Disposition: ADMITTED INPATIENT Admitting Physician: Zandra López Condition: STABLE Referrals: ZANDRA LÓPEZ MD (PCP) COVID-19 Assessment COVID-19 Patient Risks: Age 65 or older: Yes Sign of co-morbidity: Yes Exp to person + for COVID: No Exp to PUI: No Travel from affected area: No Lower respiratory symptoms: Yes Fever: No Other: Yes PPE Use: Full PPE with N95 mask or PAPR: Yes Critical Care Time Critical care time was 30 minutes which includes time at bedside, spent in discussion of patient's care with specialists and/or family members, with interpretation of laboratory and/or radiological studies and is exclusive of procedures. MEGHAN FLOR DO Jun 19, 2021 17:00
[2021-06-19] MEDS ORDERED: IV NORMAL SALINE 1,000ML 1,000 ML IV ONE (17:15)
--- NOTE | 2021-06-19 17:25 | EKG ---
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
[2021-06-19 17:40] LABS: BASO % 0 % (0-3); EOS % 0 % (0-3); HEMATOCRIT 36.9 % (36.0-47.0); HEMOGLOBIN 12.1 g/dL (12.0-15.5); LYMPH # 1.1 x10^3/uL (1.0-4.8); LYMPH % 28 % (24-48); MEAN CORPUSCULAR HEMOGLOBIN 29 pg (25-35); MEAN CORPUSCULAR HGB CONC 33 g/dL (31-37); MEAN CORPUSCULAR VOLUME 88 fL (79-100); MONO # 0.5 x10^3/uL (0.0-1.1); MONO % 12 % (0-9); NEUT # 2.3 x10^3uL (1.8-7.7); NEUT % 59 % (31-73); PLATELET COUNT 217 x10^3/uL (140-400); RED BLOOD COUNT 4.19 x10^6/uL (3.50-5.40); WHITE BLOOD COUNT 3.9 x10^3/uL (4.0-11.0)
[2021-06-19 17:53] LABS: CALCIUM 8.4 mg/dL (8.5-10.1); CREATININE 0.8 mg/dL (0.6-1.0); GFR 67.8; POTASSIUM 3.8 mmol/L (3.5-5.1)
[2021-06-19 18:08] LABS: ALBUMIN 2.8 g/dL (3.4-5.0); ALBUMIN/GLOBULIN RATIO 0.8 (1.0-1.7); MAGNESIUM 2.4 mg/dL (1.8-2.4); TOTAL BILIRUBIN 0.4 mg/dL (0.2-1.0); TOTAL PROTEIN 6.2 g/dL (6.4-8.2)
--- NOTE | 2021-06-19 18:17 | RAD ---
EXAMINATION: Chest radiograph. VIEWS: 1 COMPARISON: CT chest dated 04/06/2021 INDICATION:85 years, Female, weakness. FINDINGS: Normal cardiomediastinal silhouette. Left worst than right, perihilar and basilar pulmonary infiltrat es. Minimal atelectatic changes versus scarring in the right lung base. No pleural effusion or pneumo thorax. No acute osseous process. IMPRESSION: Left worst than right, perihilar and basilar pulmonary infiltrates. Electronically signed by: Gerald Head MD (06/19/2021 6:14 PM) [facility]
[2021-06-19] MEDS ORDERED: AZITHROMYCIN 500 MG in IV NORMAL SALINE 250ML 250 ML IV ONE (18:45)
[2021-06-19] MEDS ORDERED: IV NORMAL SALINE 50ML 50 ML ONE (19:22)
[2021-06-19] MEDS ORDERED: cefTRIAXone SODIUM 1 GM VIAL ONE (19:23)
[2021-06-19 19:36] LABS: INFLUENZA A PATIENT NEGATIVE (NEGATIVE); INFLUENZA B PATIENT NEGATIVE (NEGATIVE)
[2021-06-19 19:37] LABS: BILIRUBIN,URINE SMALL (NEG); CLARITY,URINE HAZY; COLOR,URINE YELLOW; GLUCOSE,URINE NEG (NEG)
[2021-06-19 19:38] LABS: BACTERIA,URINE MOD /HPF (0-FEW); NITRITE,URINE NEG (NEG); SQUAMOUS EPITHELIAL CELL,UR MOD /LPF; WBC,URINE >40 /HPF (0-4)
[2021-06-19] MEDS ORDERED: ONDANSETRON PF 4 MG/2 ML VIAL. IVP PRN (20:30)
[2021-06-19] MEDS ORDERED: IV NORMAL SALINE 1,000ML 1,000 ML IV SCH (20:30)
[2021-06-19] MEDS ORDERED: ACETAMINOPHEN 325 MG TABLET PO PRN (20:30)
[2021-06-19] MEDS ORDERED: DEXAMETHASONE SOD PHOS 10 MG/ML VIAL. IVP ONE (21:15)
--- NOTE | 2021-06-19 22:56 | NUR ---
The patient, DEISY BLACK, 85 y/o, F admitted by ZANDRA LÓPEZ MD, taken to room 125; attempts made to orient to room/hospital routines/policy/safety. Valuables were checked, see admit documentation.
[2021-06-19 23:26] VITALS: BP 145/67
--- NOTE | 2021-06-20 01:36 | NUR ---
Pt held her eyes tightly shut and remained silent during attempts to orient and ask questions. Pt yelled,"Stop touching me!" while rolling patient to remove extra linens from the transfer from under her. She was cooperative while putting on her manager of clinical and gown and during assessment but remained silent with eyes closed. Bed alarm and personal alarm set. tm
[2021-06-20] MEDS ORDERED: C.DIFF MED SCREEN BY RX. MC ONE (02:15)
[2021-06-20 06:23] VITALS: BP 129/68
[2021-06-20] MEDS ORDERED: DEXAMETHASONE 4 MG TABLET PO SCH (09:00)
[2021-06-20] MEDS ORDERED: NON FORMULARY ITEM (Info (No Known Medications Prior To Admisstion) 1 EACH) MC SCH (09:00)
[2021-06-20] MEDS ORDERED: ACETAMINOPHEN 325 MG TABLET PO PRN (09:00)
[2021-06-20] MEDS: ENOXAPARIN 40 MG/0.4 ML SYRINGE. SQ SCH (09:53)
[2021-06-20] MEDS: AZITHROMYCIN 250 MG in IV NORMAL SALINE 250ML 250 ML IV SCH (09:56)
[2021-06-20 11:00] VITALS: BP 102/61
[2021-06-20] MEDS: IPRATRPIUM/ALBUTEROL 0.5/2.5MG 3 ML NEBU. NEB SCH ×3 (11:33→20:00)
[2021-06-20] MEDS: DEXAMETHASONE SOD PHOS 4 MG/ML VIAL. IVP SCH ×3 (14:58→23:51)
[2021-06-20 15:00] VITALS: BP 128/70
[2021-06-20 19:25] VITALS: BP 129/54
[2021-06-20] MEDS: LACTOBACILLUS RHAMNOSUS GG 1 CAPSULE. PO SCH (20:04)
[2021-06-21 03:30] VITALS: BP 132/58
[2021-06-21] MEDS: DEXAMETHASONE SOD PHOS 4 MG/ML VIAL. IVP SCH ×3 (05:55→18:06)
--- NOTE | 2021-06-21 06:49 | HP ---
DATE OF SERVICE: 06/20/2021 ADMIT DATE: 06/19/2021 HISTORY OF PRESENT ILLNESS: The patient is an 85-year-old female, came in through the Emergency Room, apparently had a marked change in mental status. She had a severe foul smelling odor to her urine. As noted, the patient was not able to give any type of a good history; however, she had marked confusion, change in mental status, pulling out IVs and pulling her garments off her body, acute metabolic encephalopathy and the like. As a result of this, the patient was admitted for IV antibiotic therapy, IV fluids and make further evaluation on her. She also showed severe protein malnutrition and was positive for SARS virus. The patient's chest x-ray showed pulmonary infiltrates for which she is also being treated for here. PAST MEDICAL AND SURGICAL HISTORY: Includes that of hearing problems, hard of hearing, ____ atrial fibrillation, cholecystectomy, left hip repair with hardware, multiple urinary tract infections, hysterectomy. FAMILY HISTORY: Unremarkable. ALLERGIES: No known allergies. CODE STATUS: The patient says she is a DNR. SOCIAL HISTORY: Denies smoking, alcohol or drug use. MEDICATIONS: The patient's home meds only included that of Tylenol and an unknown oral medication. REVIEW OF SYSTEMS: The patient is unable to give us any type of a history as she continually has problems focusing and staying awake, at this time markedly agitated at best. PHYSICAL EXAMINATION: VITAL SIGNS: Blood pressure approximately 140/90, respiratory rate 18, pulse 70, afebrile, 91 just on room air. GENERAL: The patient is a well-developed, well-nourished female who is markedly agitated, somewhat depreciated in terms of her musculoskeletal system showing marked decrease in her musculoskeletal system. HEENT: Otherwise, the head appears to be atraumatic, normocephalic. Eyes: PERRLA without jaundice. The mouth and throat were normal. NECK: Supple without JVD, carotid bruits, nor thyroidomegaly. LUNGS: Diminished throughout, poor movement of air especially in the bases themselves. HEART: The EKG showed a sinus rhythm with occasional extra heart beats, otherwise a 1/6 systolic ejection murmur. ABDOMEN: Soft, scaphoid, nontender, no rebounding, no guarding. Positive bowel sounds, no hepatosplenomegaly. EXTREMITIES: No clubbing, cyanosis, nor edema. NEUROLOGIC: The patient, as noted, was barely arousable. She had marked decrease in mental status. LABORATORY DATA: CBC was unremarkable. Chemistry did show severe protein malnutrition, sugar 126. Lactic acid was unremarkable. Urine showed greater than 40 white blood cells per high powered field and of course she was also COVID negative. IMPRESSION: Metabolic encephalopathy; COVID-19 pneumonia; urinary tract infection, organism unspecified; change in mental status; severe protein malnutrition. The patient will be placed on IV antibiotic therapy, aggressive pulmonary toilet. Try to control her with the use of Ativan and make further assessment on her per those results. GARLAND/EMILY/YARELI DR: Kartik TID: [id number]
[2021-06-21] MEDS: IPRATRPIUM/ALBUTEROL 0.5/2.5MG 3 ML NEBU. NEB SCH ×4 (08:00→19:04)
[2021-06-21] MEDS: LACTOBACILLUS RHAMNOSUS GG 1 CAPSULE. PO SCH ×2 (09:00→20:30)
[2021-06-21] MEDS: ENOXAPARIN 40 MG/0.4 ML SYRINGE. SQ SCH (09:09)
[2021-06-21] MEDS: AZITHROMYCIN 250 MG in IV NORMAL SALINE 250ML 250 ML IV SCH (09:12)
[2021-06-21 11:00] VITALS: BP 134/57
[2021-06-21] MEDS: HALOPERIDOL LACT 5 MG/ML VIAL. IVP PRN ×3 (12:21→21:48)
--- NOTE | 2021-06-21 16:16 | PN ---
SUBJECTIVE: An 85-year-old female came in with marked change in mental status, still markedly confused, disoriented, agitated, tearing her IVs out as well as taking her clothes off, trying to get out of bed when she should not be able to, pretty much ____ change in mental attitude, not able to answer questions. OBJECTIVE: VITAL SIGNS: The patient's blood pressure 134/57, respirations 16, pulse 60, afebrile. The patient is a DNR. GENERAL: The patient otherwise is arousable, but not alert. She cannot answer questions, would not answer questions. The patient's eyes appear to be basically conjugate and normal there. The patient's mouth and throat, poor dentition. NECK: Supple. LUNGS: Show some crackles in the bases. CARDIOVASCULAR: Regular sinus rhythm. ABDOMEN: Soft, nontender. As far as one can tell, although the patient is really not responding well to any type of physical exam. Her chest x-ray of course did show infiltrative process in the lungs bilaterally for which she is receiving IV antibiotic therapy. The patient otherwise is on a high dose Rocephin per [facility]. Apparently, she does have COVID-19 as well as a problem of Streptococcus agalactiae group B noted out of her urine. Blood cultures are still pending or show no growth yet, but it may be that this is what is causing the patient along with her COVID pneumonia to be quite confused and having severe problems with her mentation. IMPRESSION: Acute metabolic encephalopathy, change in mental status, COVID-19 pneumonia, bilateral respiratory failure. She has got also headache, agitation, severe protein malnutrition, hyperglycemia, urinary tract infection as noted above. PLAN: Continue with IV antibiotic therapy for her pneumonia as well as urinary tract infection, put on a protocol of steroids, anticoagulants, antibiotics for her multiple infections as noted urinary as well as pneumonic. GARLAND/JULIANA/ARETM DR: GARLAND/dada TID: [id number]
[2021-06-21 16:18] VITALS: BP 142/78
--- NOTE | 2021-06-21 16:41 | NUR ---
Nursing note: Patient in room for assessment. She is compliant with IV medications, no medications PO. Unable to determine orientation level due to patient not talking to this nurse. She is restless, pulled out her IV, won't keep her clothes on, taking hand mitts off, as well as draping her legs over the sides of the bed. PRN given per ordered. New IV placed in left forearm, continues on antibiotic therapy. Patient is currently awake in bed restless. Will continue to monitor.
[2021-06-21 20:30] VITALS: BP 157/72
[2021-06-22] MEDS: DEXAMETHASONE SOD PHOS 4 MG/ML VIAL. IVP SCH ×4 (00:06→18:00)
[2021-06-22] MEDS: IPRATRPIUM/ALBUTEROL 0.5/2.5MG 3 ML NEBU. NEB SCH ×2 (04:56→11:15)
--- NOTE | 2021-06-22 06:29 | NUR ---
Pt restless at start of shift. Combative with ADLs. Haldol administered at 1999 and was effective. Mitts placed. IV fluids infusing. Pt very disorganized and non verbal this shift.
[2021-06-22] MEDS: LACTOBACILLUS RHAMNOSUS GG 1 CAPSULE. PO SCH ×2 (08:37→20:59)
[2021-06-22] MEDS: ENOXAPARIN 40 MG/0.4 ML SYRINGE. SQ SCH (08:38)
[2021-06-22] MEDS: AZITHROMYCIN 250 MG in IV NORMAL SALINE 250ML 250 ML IV SCH (08:38)
--- NOTE | 2021-06-22 11:20 | NUR ---
Patient found walking in her room, completely naked, PIV removed, disorganized, unable to answer questions, and blood covering her right arm, left hand, both upper legs, her bed, and the floor. Patient cleaned up, bed cleaned, floor cleaned, linen changed, new gown and brief placed on patient and helped her back to bed. Bed in low position, bed alarm on. After helping her back in bed, patient fell asleep. Will continue to monitor.
[2021-06-22 12:36] VITALS: BP 104/46
--- NOTE | 2021-06-22 14:41 | NUR ---
Patient has been in bed asleep since this morning. Attempts to start new PIV have been unsuccessful. Will hold 12:00 dexamethasone and ask hotel housekeeper to make an attempt.
--- NOTE | 2021-06-22 15:00 | NUR ---
Nursing preload supervisor has attempted to start a PIV in patient. First attempt successful, patient not tolerating well. When I went to flush the line, patient complained of pain at IV site; patient had infiltration at the injection site. PIV discontinued, will discuss with charge nurse and nursing preload supervisor on follow up.
[2021-06-22 15:20] VITALS: BP 117/81
[2021-06-22] MEDS: IPRATROPIUM/ALBUTEROL 20/100mcg/INH INHALER. INH SCH ×2 (16:00→20:00)
[2021-06-22 19:00] VITALS: BP 166/77
--- NOTE | 2021-06-22 19:21 | NUR ---
Staff are unable to place a peripheral IV. notified, order for PICC line received. [facility] called at 16:45 and again at 19:20, voice message left both times. Report given to oncoming shift; IV medications held at this time.
--- NOTE | 2021-06-22 20:30 | NUR ---
KEYANA Robin given IM. Pt awake and restless walking in room and trying to go into hallway. She is confused and not answering questions and becoming more anxious.
[2021-06-22] MEDS: HALOPERIDOL LACT 5 MG/ML VIAL. IM PRN (20:32)
--- NOTE | 2021-06-22 21:21 | PN ---
SUBJECTIVE: An 85-year-old female in with COVID-19 infection as well as a significant urinary tract infection. The patient actually is a little bit alert this morning. She does respond to her name and apparently did answer a question for one of the nurses, so that is a much more improvement than she has had for the last several days while here. OBJECTIVE: VITAL SIGNS: Blood pressure 157/72, respiratory rate 20, pulse 70, afebrile, 96% on room air. GENERAL: The patient is alert as indicated, but disoriented and very, very minimal change in mental status, but improved for her. LUNGS: Diminished, some crackles in the bases. CARDIOVASCULAR: Stable. Regular sinus rhythm. ABDOMEN: Soft, nontender. EXTREMITIES: No clubbing, cyanosis, nor edema noted. IMPRESSION: Therefore, metabolic encephalopathy; possible sepsis; pneumonia; COVID-19 pneumonia; severe protein-calorie malnutrition; moderate dementia, Alzheimer's type; COVID-19 positive with greater than 40 white blood cells per high powered field; pyelonephritis with Streptococcus agalactiae, being treated with 2 grams of Rocephin per [facility] protocol. GARLAND/TONI DR: GARLAND/dada TID: [id number]
--- NOTE | 2021-06-22 21:30 | NUR ---
PRN tylenol given for anterior chest wall pain.
--- NOTE | 2021-06-22 22:00 | NUR ---
Pt has been sleeping off and on since PRN. Now she is able to make needs known saying bathroom or night light. She is calmer and not wandering.
--- NOTE | 2021-06-22 23:20 | NUR ---
Pt sleeping now.
--- NOTE | 2021-06-23 00:30 | NUR ---
PRN tramadol given for anterior chest wall pain. Addendum: 06/23/21 at 0055 by RODRIGUE LOFTON RN charted on wrong pt
--- NOTE | 2021-06-23 01:12 | NUR ---
charted on wrong pt
[2021-06-23] MEDS: DEXAMETHASONE SOD PHOS 4 MG/ML VIAL. IVP SCH ×2 (06:00)
[2021-06-23 06:31] VITALS: BP 146/68
[2021-06-23 06:36] LABS: HEMOGLOBIN 11.8 g/dL (12.0-15.5); RED BLOOD COUNT 4.14 x10^6/uL (3.50-5.40); RED CELL DISTRIBUTION WIDTH 12.8 % (11.5-14.5); WHITE BLOOD COUNT 10.7 x10^3/uL (4.0-11.0)
[2021-06-23] MEDS: IPRATROPIUM/ALBUTEROL 20/100mcg/INH INHALER. INH SCH ×4 (08:00→19:57)
[2021-06-23] MEDS: LACTOBACILLUS RHAMNOSUS GG 1 CAPSULE. PO SCH ×2 (08:30→19:57)
[2021-06-23] MEDS: ENOXAPARIN 40 MG/0.4 ML SYRINGE. SQ SCH (08:32)
[2021-06-23] MEDS ORDERED: FLU VACC QUAD 21-22 (6MOS+) PF 0.5 ML SYRINGE. VAX IM ONE (09:00)
--- NOTE | 2021-06-23 09:01 | NUR ---
Patient in bed awake. This nurse gave flu shot per order in Left deltoid, tolerated well. Lot# [id number] expiration date 11/26/21.
[2021-06-23] MEDS ORDERED: AZITHROMYCIN 500 MG in IV NORMAL SALINE 250ML 250 ML IV SCH (10:00)
[2021-06-23 12:06] VITALS: BP 118/67
[2021-06-23] MEDS: AZITHROMYCIN 250 MG TABLET. PO SCH (15:02)
[2021-06-23 15:30] VITALS: BP 148/69
[2021-06-23 16:22] VITALS: BP 118/67
[2021-06-23] MEDS: DEXAMETHASONE 4 MG TABLET PO SCH ×2 (17:05→23:33)
[2021-06-23] MEDS: HALOPERIDOL LACT 5 MG/ML VIAL. IM PRN (19:57)
[2021-06-23] MEDS: CEFDINIR 300 MG CAPSULE PO SCH (19:57)
[2021-06-23 20:18] VITALS: BP 153/74
[2021-06-23 23:06] VITALS: BP 152/76
--- NOTE | 2021-06-24 04:55 | NUR ---
Pt restless in room at beginning of shift, continually getting up unassisted and opening door to peer into hallway. Pt is in COVID isolation and difficult to redirect. PRN Haldol given IM per order. Pt responded well, able to settle down and sleep for much of the night. When given HS pills crushed in applesauce, pt required much coaxing to take a single bite and proceeded to spit a portion of the applesauce into her blanket. Pt has no desire to eat or drink despite continued encouragement to do so.
[2021-06-24] MEDS: DEXAMETHASONE 4 MG TABLET PO SCH ×2 (05:23→08:02)
--- NOTE | 2021-06-24 05:41 | PN ---
DATE: 06/23/2021 SUBJECTIVE: An 85-year-old female in with change in mental status, sepsis, metabolic encephalopathy, pneumonia and COVID-19 pneumonia, severe protein calorie malnutrition. The patient slightly more alert, did utter few more words today than she has, still very ill, being treated for pneumonia as well as her urinary tract infection. OBJECTIVE: VITAL SIGNS: Blood pressure is 152/76, respiratory rate 16, pulse 90, afebrile, 93 on room air. GENERAL: The patient is alert, more so than she has been, but still markedly sedated in terms of not really respond to most questions, but is able to say that she feels a little better. LUNGS: Diminished, some crackles in the bases. CARDIOVASCULAR: Regular sinus rhythm. ABDOMEN: Soft. EXTREMITIES: No clubbing, cyanosis or edema. NEUROLOGIC: As noted, alert at times, but markedly decreased mentation overall. PLAN: The patient continued to be monitored, treated for her urinary tract infection and make adjustments accordingly and look for placement in a nursing facility as the patient still requires significant medical care. YOEL DR: Kartik TID: [id number]
[2021-06-24 05:49] VITALS: BP 161/95
[2021-06-24] MEDS: IPRATROPIUM/ALBUTEROL 20/100mcg/INH INHALER. INH SCH ×3 (08:00→16:00)
[2021-06-24] MEDS: AZITHROMYCIN 250 MG TABLET. PO SCH (08:02)
[2021-06-24] MEDS: CEFDINIR 300 MG CAPSULE PO SCH (08:02)
[2021-06-24] MEDS: LACTOBACILLUS RHAMNOSUS GG 1 CAPSULE. PO SCH (08:02)
[2021-06-24 08:26] LABS: BASO % 0 % (0-3); EOS % 0 % (0-3); HEMOGLOBIN 12.4 g/dL (12.0-15.5); LYMPH # 0.7 x10^3/uL (1.0-4.8); LYMPH % 9 % (24-48); MEAN CORPUSCULAR HEMOGLOBIN 28 pg (25-35); MEAN CORPUSCULAR HGB CONC 33 g/dL (31-37); MEAN CORPUSCULAR VOLUME 87 fL (79-100); MONO # 0.5 x10^3/uL (0.0-1.1); MONO % 7 % (0-9); NEUT # 6.3 x10^3uL (1.8-7.7); NEUT % 84 % (31-73); PLATELET COUNT 288 x10^3/uL (140-400); RED BLOOD COUNT 4.36 x10^6/uL (3.50-5.40); RED CELL DISTRIBUTION WIDTH 12.9 % (11.5-14.5); WHITE BLOOD COUNT 7.4 x10^3/uL (4.0-11.0)
[2021-06-24] MEDS: ENOXAPARIN 40 MG/0.4 ML SYRINGE. SQ SCH (08:34)
[2021-06-24 08:41] LABS: ALBUMIN 2.8 g/dL (3.4-5.0); ALBUMIN/GLOBULIN RATIO 0.9 (1.0-1.7); CALCIUM 8.4 mg/dL (8.5-10.1); CREATININE 0.7 mg/dL (0.6-1.0); GFR 79.2; POTASSIUM 3.5 mmol/L (3.5-5.1); TOTAL BILIRUBIN 0.5 mg/dL (0.2-1.0); TOTAL PROTEIN 5.9 g/dL (6.4-8.2)
[2021-06-24 11:19] VITALS: BP 164/79
[2021-06-24] MEDS ORDERED: ACET650S11 RC (12:56)
[2021-06-24] MEDS ORDERED: LORA2ORA8 PO (12:56)
[2021-06-24] MEDS ORDERED: MOR20SLSJL SL (12:56)
[2021-06-24] MEDS ORDERED: ONDA4TAB12 PO (12:56)
[2021-06-24] MEDS ORDERED: SCOP1PAT12 TP (12:56)
--- NOTE | 2021-06-24 12:58 | DISCH ---
DISCHARGE ORDERS DISCHARGE DATE: Jun 24, 2021 FINAL DIAGNOSIS COVID pneumonia Respiratory Failure Severe Protein Malnutrition CONDITION AT DISCHARGE: Stable Code Status: DNR/DNI SNF STAY <30 DAYS: No HOSPICE: Yes HOSPICE EVALUATE & TREAT: Yes ADMIT TO LTAC: No POST DISCHARGE ORDERS: ACTIVITY ORDERS: Activity as tolerated WEIGHT BEARING STATUS: As tolerated DIET AFTER DISCHARGE: Regular DISCHARGE MEDICATIONS: Home Meds Active Scripts Acetaminophen (TYLENOL) 325 Mg Tablet, 650 MG PO PRN Q6HRS PRN for PAIN, #120 TAB Prov:ZANDRA LÓPEZ MD 04/04/20 Reported Medications Info (NO KNOWN MEDICATIONS PRIOR TO ADMISSTION) Each, 1 EACH MC 1X for No home meds 04/03/20 Discontinued Scripts Nitrofurantoin Monohyd/M-Cryst (MACROBID 100 MG CAPSULE) 100 Mg Capsule, 1 CAP PO BID for UTI for 5 Days, #10 CAP 0 Refills Prov:NAJMA TREVINO DO 04/06/21 ZANDRA LÓPEZ MD Jun 24, 2021 12:58
[2021-06-24 16:10] VITALS: BP_SYST 162; BP_SYST 166; BP_DIAS 72
--- NOTE | 2021-06-24 17:15 | NUR ---
PATIENT IS DISCHARGED HOME WITH HOSPICE. PT IS ESCORTED HOME WITH EMS. PT IS STABLE A TIME OF DISCHARGE. PT IS GIVEN ALL DISCHARGE INSTRUCTIONS. AND HAS ALL BELONGINGS AT TIME OF DISCHARGE. REPORT CALLED TO WARREN AT [facility].
--- NOTE | 2021-06-25 09:24 | PN ---
DATE: 06/24/2021 SUBJECTIVE: An 85-year-old female. The patient is somewhat deteriorated overall. She was admitted for COVID-19 pneumonia, severe infection; however, the patient has gone into metabolic encephalopathy with marked coma like symptoms. She is not eating or drinking. The patient pulled out all her IVs and just wants to continually rest. She has refused all therapy. Discussed with family and they decided to place her on hospice and take her home. OBJECTIVE: VITAL SIGNS: Blood pressure 164/79, respiration 18, pulse 85, afebrile. GENERAL: The patient is not alert. She is pretty much comatose. IMPRESSION: 1. COVID-19 pneumonia. 2. Metabolic encephalopathy. 3. Urinary tract infection consistent with that of Streptococcus agalactiae urinary tract infection. PLAN: We will keep her as comfortable as possible and turn over to the hospice of family's choice. GARLAND/SONIA/BERTHA DR: GARLAND/dada TID: [id number]
== END 2021-06-24 17:15 | disposition hospice, home (50) | DRG 871 ==
LOC: ER 16:24 → ER HOLD 20:29 → 1 SOUTH 20:51
PROVIDERS: ADMIT Family Medicine; ATTEND Family Medicine
DX: A41.89 Other specified sepsis (principal); U07.1 COVID-19; J12.82 Pneumonia due to coronavirus disease 2019; E43 Unspecified severe protein-calorie malnutrition; G93.41 Metabolic encephalopathy; J96.91 Respiratory failure, unspecified with hypoxia; N30.01 Acute cystitis with hematuria; B95.1 Streptococcus, group B, as the cause of diseases classified elsewhere; E86.0 Dehydration; F03.90 Unspecified dementia, unspecified severity, without behavioral disturbance, psychotic disturbance, mood disturbance, and anxiety; I48.91 Unspecified atrial fibrillation; Z66 Do not resuscitate; Z87.440 Personal history of urinary (tract) infections; Z90.710 Acquired absence of both cervix and uterus; Z90.49 Acquired absence of other specified parts of digestive tract; Z68.24 Body mass index [BMI] 24.0-24.9, adult
CPT/HCPCS: 36415; 71045; 80053; 81001; 82553; 83605; 83735; 84484; 85025; 85027; 87040; 87086; 87428; 90471; 90686; 93005; 94640; 96361; 96365; J0456; J0696; J1100; J1630; J1650; J1956; J2060; J7050; J8540; 99285-25; J7030